=== PATIENT | female | born 1985 | race Caucasian/White ===

== ENCOUNTER 2019-04-16 05:54 | Day surgery (SDC) | payer BC ==
[2019-04-16] MEDS ORDERED: FENTAnyl 50 MCG/ML VIAL (09:38)
[2019-04-16] MEDS ORDERED: MIDAZOLAM 1 MG/ML 2 ML INJ ×3 (09:38)
== END 2019-04-16 14:07 | disposition home or self-care (01) ==
LOC: GIL 05:54
DX: K62.5 Hemorrhage of anus and rectum (principal); K51.90 Ulcerative colitis, unspecified, without complications
CPT/HCPCS: 45380; 84703; 88305